=== PATIENT | male | born 1975 | race Caucasian/White ===

== ENCOUNTER 2018-02-17 23:51 | Emergency (ER) | payer OTHER ==
[2018-02-18 00:08] VITALS: TEMP 97.6; BMI 20.3
--- NOTE | 2018-02-18 02:08 | PDOC ---
History of Present Illness - General Chief Complaint: Substance Abuse Stated Complaint: PAIN,SEIZURE Time Seen by Provider: 02/18/18 00:52 History Source: Patient Exam Limitations: No Limitations - History of Present Illness Initial Comments: 02/18/18 02:37 42-year-old male with a history of IVDA resents to the emergency department requesting for opiate detox. Patient states he has no medical complaints at this time. Patient denies headache, dizziness, lightheadedness, neck pains, chest pain, shortness of breath, abdominal pains, flank pains, urinary symptoms. Patient last used heroin intravenously 24 hours ago. Patient states he has a history of IVDA for the past 7 years. Patient denies any medical complaints. Timing/Duration: 24 hours Past History - Past Medical History Allergies/Adverse Reactions: Allergies Allergy/AdvReac Type Severity Reaction Status Date / Time No Known Allergies Allergy Verified 02/18/18 00:06 Home Medications: Ambulatory Orders Alprazolam 2 mg PO DAILY 02/18/18 - Suicide/Smoking/Psychosocial Hx Smoking History: Current every day smoker Have you smoked in the past 12 months: Yes Number of Cigarettes Smoked Daily: 10 Information on smoking cessation initiated: No 'Breaking Loose' booklet given: 02/17/18 Hx Alcohol Use: Yes Drug/Substance Use Hx: Yes Review of Systems - Review of Systems Able to Perform ROS?: Yes Comments:: 02/18/18 02:38 CONSTITUTIONAL: Absent: fever, chills, diaphoresis, generalized weakness, malaise, loss of appetite HEENT: Absent: rhinorrhea, nasal congestion, throat pain, throat swelling, difficulty swallowing, mouth swelling, ear pain, eye pain, visual Changes CARDIOVASCULAR: Absent: chest pain, loss of consciousness, palpitations, irregular heart rate, peripheral edema RESPIRATORY: Absent: cough, shortness of breath, dyspnea with exertion, orthopnea, wheezing, stridor, hemoptysis GASTROINTESTINAL: Absent: abdominal pain, abdominal distension, nausea, vomiting, diarrhea, constipation, melena, hematochezia GENITOURINARY: Absent: dysuria, frequency, urgency, hesitancy, hematuria, flank pain, genital pain MUSCULOSKELETAL: Absent: myalgia, arthralgia, joint swelling SKIN: Absent: rash, itching, pallor HEMATOLOGIC/IMMUNOLOGIC: Absent: easy bleeding, easy bruising, lymphadenopathy, frequent infections ENDOCRINE: Absent: unexplained weight gain, unexplained weight loss, heat intolerance, cold intolerance NEUROLOGIC: Absent: headache, focal weakness or paresthesias, dizziness, unsteady gait, seizure, mental status changes, bladder or bowel incontinence PSYCHIATRIC: Absent: anxiety, depression, suicidal or homicidal ideation, hallucinations. Is the patient limited Omani proficient: No *Physical Exam - Vital Signs Last Vital Signs Temp Pulse Resp BP Pulse Ox 97.6 F 101 H 20 109/83 99 02/18/18 00:06 02/18/18 00:06 02/18/18 00:06 02/18/18 00:06 02/18/18 00:06 - Physical Exam Comments: 02/18/18 02:38 GENERAL: Well developed, well nourished. Awake and alert. No acute distress. HEENT: Normocephalic, atraumatic. PERRLA, EOMI. No conjunctival pallor. Sclera are non- icteric. Moist mucous membranes. Oropharynx is clear. NECK: Supple. Full ROM. No JVD. Carotid pulses 2+ and symmetric, without bruits. No thyromegaly. No lymphadenopathy. CARDIOVASCULAR: Regular rate and rhythm. No murmurs, rubs, or gallops. Distal pulses are 2+ and symmetric. PULMONARY: No evidence of respiratory distress. Lungs clear to auscultation bilaterally. No wheezing, rales or rhonchi. ABDOMINAL: Soft. Non-tender. Non-distended. No rebound or guarding. No organomegaly. Normoactive bowel sounds. MUSCULOSKELETAL Normal range of motion at all joints. No bony deformities or tenderness. No CVA tenderness. EXTREMITIES: No cyanosis. No clubbing. No edema. No calf tenderness. SKIN: Warm and dry. Normal capillary refill. No rashes. No jaundice. NEUROLOGICAL: Alert, awake, appropriate. Cranial nerves 2-12 intact. No deficits to light touch and temperature in face, upper extremities and lower extremities. No motor deficits in the in face, upper extremities and lower extremities. Normoreflexic in the upper and lower extremities. Normal speech. Toes are down- going bilaterally. Gait is normal without ataxia. PSYCHIATRIC: Cooperative. Good eye contact. Appropriate mood and affect. ED Treatment Course - LABORATORY CBC & Chemistry Diagram: 02/18/18 02:16 02/18/18 02:16 *DC/Admit/Observation/Transfer Diagnosis at time of Disposition: Desire for detoxification - Discharge Dispostion Disposition: HOME Condition at time of disposition: Stable Admit: No - Referrals Referrals: Shalonda Siddiqui [Primary Care Provider] - - Patient Instructions Printed Discharge Instructions: DI for Opioid Addiction Additional Instructions: You were informed by the detox unit at [address] [place] [address] that you do not meet the criteria for admission. I had called [address] [place] [address] detox for you while you are in the emergency department and they reiterated that he did not meet the criteria for admission. As per our discussion, you've agreed to be discharged and will follow-up at either [facility], [place] or [facility] detox center. - Post Discharge Activity Progress Note - Progress Note Progress Note: 0105hrs: As per ERICK Jacome at [facility]/[address] [place] [address], patient was at the facility for admission but he did not meet criteria. She was not able to elaborate why he did not meet criteria.
[2018-02-18] MEDS ORDERED: SODIUM CHLORIDE 1,000 ML IV STA (02:09)
[2018-02-18 02:40] LABS: BASO % 0.6 % (0-2.0); EOS % 5.3 % (0-4.5); HEMATOCRIT 36.1 % (35.4-49); HEMOGLOBIN 12.2 GM/dL (11.7-16.9); LYMPH % 37.3 % (8-40); MCH 29.3 pg (25.7-33.7); MCHC 33.8 g/dl (32.0-35.9); MEAN CELL VOLUME 86.8 fl (80-96); MEAN PLT VOLUME 7.7 fl (7.5-11.1); MONO % 9.4 % (3.8-10.2); NEUT % 47.4 % (42.8-82.8); PLATELET COUNT 301 K/MM3 (134-434); RBC 4.15 M/mm3 (4.00-5.60); RDW 13.8 % (11.9-15.9); WHITE BLOOD COUNT 7.7 K/mm3 (4.0-10.0)
[2018-02-18 02:47] LABS: PHENCYCLIDINE,URINE NEGATIVE ng/ml (CUTOFF=25); URINE AMPHETAMINES NEGATIVE ng/ml (CUTOFF=500); URINE BARBITURATES NEGATIVE ng/ml (CUTOFF=200)
[2018-02-18 02:48] LABS: URINE BENZODIAZEPINES POSITIVE ng/ml (CUTOFF=200)
[2018-02-18 02:49] LABS: COCAINE, UR POSITIVE ng/ml (CUTOFF=300); METHADONE, UR POSITIVE ng/ml (CUTOFF=300); OPIATES, URI POSITIVE ng/ml (CUTOFF=300)
[2018-02-18 03:17] LABS: ALBUMIN 3.4 g/dl (3.4-5.0); ANION GAP 10 (8-16); BILIRUBIN,TOTAL 0.6 mg/dL (0.2-1.0); BLOOD UREA NITROGEN 10 mg/dL (7-18); CALCIUM 8.7 mg/dL (8.5-10.1); CHLORIDE 102 mmol/L (98-107); CO2 29 mmol/L (21-32); GLUCOSE,RANDOM 89 mg/dL (74-106); POTASSIUM 3.5 mmol/L (3.5-5.1); SGOT/AST 14 U/L (15-37); SGPT/ALT 18 U/L (12-78); SODIUM 141 mmol/L (136-145); TOT PROT 7.1 g/dl (6.4-8.2)
[2018-02-18 03:18] LABS: ALK PHOS 90 U/L (45-117)
[2018-02-18 05:31] VITALS: BP 106/80; PULSE 90
== END 2018-02-18 05:31 | disposition home or self-care (01) ==
LOC: JER 23:51
DX: F11.20 Opioid dependence, uncomplicated (principal); F17.210 Nicotine dependence, cigarettes, uncomplicated
CPT/HCPCS: 36415; 80053; 80307; 85025; 99282-25; J7030

== ENCOUNTER 2018-02-18 08:08 | Inpatient (IN) | payer OTHER ==
[2018-02-18 08:31] VITALS: BMI 24.4
--- NOTE | 2018-02-18 09:08 | HP ---
CIWA Score - CIWA Score Nausea/Vomitin-Mild Nausea/No Vomiting Muscle Tremors: 4-Moderate,w/Arms Extend Anxiety: 4-Mod. Anxious/Guarded Agitation: 1-Slight > Activity Paroxysmal Sweats: 1-Minimal Palms Moist Orientation: 1-Uncertain about Date Tacttile Disturbances: 1-Very Mild Itch/Numbness Auditory Disturbances: 1-Very Mild Visual Disturbances: 1-Very Mild Sensitivity Headache: 3-Moderate CIWA-Ar Total Score: 18 Admission ROS S - HPI Chief Complaint: I need help, I can't stop the xanax, I get a seizure Allergies/Adverse Reactions: Allergies Allergy/AdvReac Type Severity Reaction Status Date / Time No Known Allergies Allergy Verified 02/18/18 09:33 History of Present Illness: 42 yo gentleman here for detox from benzodiazepine. He is in the [facility] Suboxone program in the [place], , ID#: [id number], dose verified by myself with nurse Guanako Kaur, 16mg, last dose given was yesterday. Patient states he was told by the program he needed to come in for detox and then rehab. He has had drug related seizures, last one three weeks ago. He was in [facility] ED today, labs done there. Patient reports he is still using heroin and/or street methadone but wishes to stay on the suboxone and try to stop the other drugs. States he has lost about 45 lbs. Exam Limitations: No Limitations - Ebola screening Have you traveled outside of the country in the last 21 days: No (N) Have you had contact with anyone from an Ebola affected area: No Have you been sick,other than usual withdrawal symptoms: No Do you have a fever: No - Review of Systems Constitutional: Loss of Appetite, Malaise, Changes in sleep, Weakness, Unintentional Wgt. Loss EENT: reports: No Symptoms Reported Respiratory: reports: No Symptoms reported Cardiac: reports: No Symptoms Reported GI: reports: Nausea, Poor Fluid Intake, Indigestion : reports: Dysuria Musculoskeletal: reports: Muscle Pain Integumentary: reports: Dryness Neuro: reports: Headache, Tremors Endocrine: reports: No Symptoms Reported Hematology: reports: No Symptoms Reported Psychiatric: reports: Judgement Intact, Mood/Affect Appropiate, Anxious Other Systems: Reviewed and Negative Patient History - Patient Medical History Hx Anemia: No Hx Asthma: No Hx Chronic Obstructive Pulmonary Disease (COPD): No Hx Cancer: No Hx Cardiac Disorders: No Hx Congestive Heart Failure: No Hx Hypertension: No Hx Pacemaker: No Hx Seizures: Yes (drug related , last one 01/19/18) Hx Diabetes: No Hx Gastrointestinal Disorders: No Hx Liver Disease: No Hx Genitourinary Disorders: No Hx Sexually Transmitted Disorders: No Hx Renal Disease (ESRD): Yes (renal calculi 2002) Hx Thyroid Disease: No Hx Human Immunodeficiency Virus (HIV): No Hx Hepatitis C: No Hx Depression: Yes (ANXIETY) Hx Suicide Attempt: No Hx Bipolar Disorder: No Hx Schizophrenia: No - Patient Surgical History Past Surgical History: No - PPD History Previous Implant?: No (states had BCG vaccine ) Documented Results: Positive w/o proof Implanted On Prior [facility] Admission?: No PPD to be Administered?: No - Reproductive History Patient is a Female of Child Bearing Age (11 -55 yrs old): No (male) - Smoking Cessation Smoking history: Current every day smoker Have you smoked in the past 12 months: Yes Aproximately how many cigarettes per day: 20 Hx Chewing Tobacco Use: No Initiated information on smoking cessation: Yes 'Breaking Loose' booklet given: 02/18/18 (given on floor) - Substance & Tx. History Hx Alcohol Use: No Hx Substance Use: Yes Substance Use Type: Alcohol, Cocaine, Heroin, Opiates, Tranquilizers Hx Substance Use Treatment: Yes (suboxone program, detox, rehab) - Substances Abused xanax Route: Oral Frequency: Daily Amount used: 8mg Age of first use: 22 Date of Last Use: 02/17/18 street methadone Route: Oral Frequency: 1-3 times last 30 days Amount used: 90mg Age of first use: 27 Date of Last Use: 02/15/18 cocaine Route: Injection Frequency: 1-2 times per week Amount used: $100 Age of first use: 26 Date of Last Use: 02/12/18 heroin Route: Injection Frequency: 1-2 times per week Amount used: 4 bags Age of first use: 27 Date of Last Use: 02/14/18 Family Disease History - Family Disease History Family Disease History: Other: Father (living, healthy, in [place]), Mother (living, healthy, in [place]), Sister (one - healthy - in [place]) Admission Physical Exam [facility] - Vital Signs Vital Signs: Vital Signs - 24 hr 02/18/18 08:30 Temperature 97 F L Pulse Rate 80 Respiratory 19 Rate Blood Pressure 115/72 - Physical General Appearance: Yes: Nourished, Appropriately Dressed, Moderate Distress, Thin, Tremorous, Anxious HEENTM: Yes: EOMI, Hearing grossly Normal, Normocephalic, Normal Voice Respiratory: Yes: Normal Breath Sounds, No Respiratory Distress Neck: Yes: No masses,lesions,Nodules, Supple Breast: Yes: Breast Exam Deferred Cardiology: Yes: Regular Rhythm, Regular Rate Abdominal: Yes: Flat, Soft Genitourinary: Yes: Burning Back: Yes: Normal Inspection Musculoskeletal: Yes: full range of Motion, Gait Steady Extremities: Yes: Normal Inspection, Non-Tender Neurological: Yes: Fully Oriented, Alert, Normal Mood/Affect, Normal Response Integumentary: Yes: Normal Color, Warm, Track Kauffman (both arms, no abscess noted ) Lymphatic: Yes: Within Normal Limits - Diagnostic (1) Sedative, hypnotic or anxiolytic dependence with withdrawal, uncomplicated Current Visit: Yes Status: Chronic (2) Cocaine dependence Current Visit: Yes Status: Chronic Qualifiers: Substance use status: uncomplicated Qualified Code(s): F14.20 - Cocaine dependence, uncomplicated (3) Opiate dependence Current Visit: Yes Status: Acute Qualifiers: Substance use status: uncomplicated Qualified Code(s): F11.20 - Opioid dependence, uncomplicated (4) Nicotine dependence Current Visit: Yes Status: Acute Qualifiers: Nicotine product type: cigarettes Substance use status: uncomplicated Qualified Code(s): F17.210 - Nicotine dependence, cigarettes, uncomplicated (5) Dehydration Current Visit: Yes Status: Acute (6) History of seizure Current Visit: Yes Status: Chronic (7) Weight loss Current Visit: Yes Status: Chronic Cleared for Admission [facility] - Detox or Rehab [facility] Level of Care: Medically Managed Detox Regimen/Protocol: Valium S Breath Alcohol Content Breath Alcohol Content: 0 Urine Drug Screen - Results Drug Screen Negative: No Urine Drug Screen Results: BZO-Benzodiazepines, MTD-Methadone
[2018-02-18] MEDS ORDERED: MAGNESIUM CITRATE 300 ML BOTTLE PO PRN (09:22)
[2018-02-18] MEDS ORDERED: MAGNESIUM HYDROX 2400MG/30ML ORAL SUSPENSION 30 ML CUP PO PRN (09:22)
[2018-02-18] MEDS ORDERED: guaiFENesin/D-METHORPHAN HB 10 ML UNIT-DOSE CUPS PO PRN (09:22)
[2018-02-18] MEDS ORDERED: MENTHOL/PHENOL 1 EACH UD MM PRN (09:22)
[2018-02-18] MEDS ORDERED: LOPERAMIDE HCL 2 MG CAPSULE PO PRN (09:22)
[2018-02-18] MEDS ORDERED: ACETAMINOPHEN 325 MG TABLET (FP) PO PRN (09:22)
[2018-02-18] MEDS ORDERED: P-EPHED 60MG/TRIPROLIDI 2.5MG TABLET PO PRN (09:22)
[2018-02-18] MEDS ORDERED: IBUPROFEN 400 MG TABLET (FP) PO PRN (09:22)
[2018-02-18] MEDS ORDERED: MAG HYDROX/AL HYDROX/SIMETH 30 ML UNIT-DOSE CUP PO PRN (09:22)
[2018-02-18] MEDS ORDERED: diazePAM 5 MG TABLET PO ONE (11:30)
[2018-02-18] MEDS: BUPRENORPHINE/NALOXONE 8 MG/2 MG FILM PACKET SL SCH (12:55)
[2018-02-18] MEDS: PRENATAL VITAMINS W/ FOLIC ACID TABLET (FP) PO SCH (12:58)
[2018-02-18] MEDS: NICOTINE POLACRILEX 4 MG GUM BUC PRN (13:24)
[2018-02-18] MEDS: diazePAM 5 MG TABLET PO SCH ×2 (14:38→22:11)
[2018-02-18] MEDS: diazePAM 5 MG TABLET PO PRN (17:09)
[2018-02-18 17:53] LABS: URINE APPEARANCE SLCLOUDY; URINE BILIRUBIN NEGATIVE (<2.0 mg/dL); URINE BLOOD NEGATIVE (NEGATIVE); URINE COLOR YELLOW; URINE GLUCOSE (UA) NEGATIVE (NEGATIVE); URINE KETONE NEGATIVE (NEGATIVE); URINE LEUK ESTERASE NEGATIVE (NEGATIVE); URINE NITRITE NEGATIVE (NEGATIVE); URINE PROTEIN NEGATIVE (NEGATIVE); URINE UROBILINOGEN 4.0 E.U/dl mg/dL (0.2-1.0)
[2018-02-18] MEDS: MELATONIN 5 MG TABLETS PO PRN (22:10)
[2018-02-18] MEDS: THIAMINE HCL 100 MG TABLET (FP) PO SCH (22:11)
[2018-02-19] MEDS: diazePAM 5 MG TABLET PO SCH ×3 (05:59→22:20)
--- NOTE | 2018-02-19 07:42 | CONSULT ---
[facility] Psychiatric Consult - Data Date of interview: 02/19/18 [facility] Identifying data: Mr Plata is a 42 years old male, unemployed on food stamp, homeless seeking detox treatment for opioid, cocaine and benzodiazepine Substance Abuse History: Reports history of heroin, methadone, cocainr and xanax use. Refer to addiction counselor's note for furhter information Medical History: Significant for history of benzodiazepine withdrawal seizure and renal calculi. Smokes cigarettes 1ppd Psychiatric History: Reports that he has been receiving treatment on & off for the past 10 years for anxiety. Currently he sees the staff psychiatrist at [facility] and he is prescribed Gabapentin 600 mg po Q 8hrs. Denies history of previous psychiatric hospitalization or suicidal attempt. At present, reports feeling anxious and sleeping poorly Physical/Sexual Abuse/Trauma History: Denies history of emotional, physical or sexual abuse as well as DV relationship Additional Comment: Reports history of multiple previous misdemear arrests mostly on charges of possession. Denies being on probation [facility] Mental Status Exam - Mental Status Exam Alert and Oriented to: Time, Person Cognitive Function: Fair Patient Appearance: Well Groomed Mood: Hopeful, Euthymic Affect: Normal Range Patient Behavior: Cooperative Speech Pattern: Clear Voice Loudness: Normal Thought Process: Intact, Goal Oriented Thought Disorder: Not Present Hallucinations: Denies Suicidal Ideation: Denies Homicidal Ideation: Denies Insight/Judgement: Poor Sleep: Poorly Appetite: Poor Muscle strength/Tone: Normal Gait/Station: Normal Psychiatric Findings - Problem List ([place] 1, 2,3) (1) Anxiety disorder Current Visit: Yes Status: Chronic (2) Substance-induced anxiety disorder Current Visit: Yes Status: Acute (3) Substance-induced sleep disorder Current Visit: Yes Status: Acute (4) Opiate dependence Current Visit: Yes Status: Acute Qualifiers: Substance use status: uncomplicated Qualified Code(s): F11.20 - Opioid dependence, uncomplicated (5) Cocaine dependence Current Visit: Yes Status: Acute Qualifiers: Substance use status: uncomplicated Qualified Code(s): F14.20 - Cocaine dependence, uncomplicated (6) Sedative, hypnotic or anxiolytic dependence with withdrawal, uncomplicated Current Visit: Yes Status: Acute (7) Nicotine dependence Current Visit: Yes Status: Acute Qualifiers: Nicotine product type: cigarettes Substance use status: uncomplicated Qualified Code(s): F17.210 - Nicotine dependence, cigarettes, uncomplicated (8) History of seizure Current Visit: Yes Status: Chronic (9) Opioid dependence on agonist therapy Current Visit: Yes Status: Acute - Initial Treatment Plan Initial Treatment Plan: 1) Continue Gabapentin 600 mg po TID. 2) Start Melatonin 5 mg po HS prn for insomnia. 3) Continue inpatient detoxification
[2018-02-19] MEDS: PRENATAL VITAMINS W/ FOLIC ACID TABLET (FP) PO SCH (10:07)
[2018-02-19] MEDS: BUPRENORPHINE/NALOXONE 8 MG/2 MG FILM PACKET SL SCH (10:07)
--- NOTE | 2018-02-19 10:25 | PN ---
[facility] CIWA - CIWA Score Nausea/Vomitin-Mild Nausea/No Vomiting Muscle Tremors: 4-Moderate,w/Arms Extend Anxiety: 4-Mod. Anxious/Guarded Agitation: 4-Moderately Restless Paroxysmal Sweats: 1-Minimal Palms Moist Orientation: 0-Oriented Tacttile Disturbances: 1-Very Mild Itch/Numbness Auditory Disturbances: 0-None Visual Disturbances: 0-None Headache: 1-Very Mild CIWA-Ar Total Score: 16 [facility] Progress Note (SOAP) Subjective: sweat tremor restlessness anxiety itchy skin mild headache Objective: 02/19/18 10:24 Vital Signs Temperature 97.0 F L 02/19/18 07:34 Pulse Rate 55 L 02/19/18 07:34 Respiratory Rate 16 02/19/18 07:34 Blood Pressure 97/57 02/19/18 07:34 O2 Sat by Pulse Oximetry (%) Laboratory Last Values Urine Color Yellow 02/18/18 Unknown Urine Appearance Slcloudy 02/18/18 Unknown Urine pH 6.0 (5.0-8.0) 02/18/18 Unknown Ur Specific [place] 1.014 (1.001-1.035) 02/18/18 Unknown Urine Protein Negative (NEGATIVE) 02/18/18 Unknown Urine Glucose (UA) Negative (NEGATIVE) 02/18/18 Unknown Urine Ketones Negative (NEGATIVE) 02/18/18 Unknown Urine Blood Negative (NEGATIVE) 02/18/18 Unknown Urine Nitrite Negative (NEGATIVE) 02/18/18 Unknown Urine Bilirubin Negative (<2.0 mg/dL) 02/18/18 Unknown Urine Urobilinogen 4.0 e.u/dl mg/dL (0.2-1.0) 02/18/18 Unknown Ur Leukocyte Esterase Negative (NEGATIVE) 02/18/18 Unknown lab noted Assessment: 02/19/18 10:25 withdrawal sx Plan: continue detox
[2018-02-19] MEDS: diazePAM 5 MG TABLET PO PRN ×2 (10:45→18:56)
[2018-02-19] MEDS: GABAPENTIN 300 MG CAPSULE (FP) PO SCH ×2 (14:08→22:20)
--- NOTE | 2018-02-19 16:25 | EKG ---
Test Reason : Blood Pressure : / mmHG Vent. Rate : 075 BPM Atrial Rate : 075 BPM P-R Int : 142 ms QRS Dur : 088 ms QT Int : 386 ms P-R-T Axes : 045 037 032 degrees QTc Int : 431 ms NORMAL SINUS RHYTHM NORMAL ECG NO PREVIOUS ECGS AVAILABLE Confirmed by MD FARTUN, DIOR ([id number]) on 02/19/2018 4:24:28 PM Referred By: Confirmed By:DIOR WILLOUGHBY MD
[2018-02-19] MEDS: THIAMINE HCL 100 MG TABLET (FP) PO SCH (22:20)
[2018-02-19] MEDS: MELATONIN 5 MG TABLETS PO PRN (22:20)
[2018-02-20] MEDS: GABAPENTIN 300 MG CAPSULE (FP) PO SCH ×3 (05:13→22:11)
[2018-02-20] MEDS: diazePAM 5 MG TABLET PO PRN ×3 (05:15→17:06)
[2018-02-20] MEDS: PRENATAL VITAMINS W/ FOLIC ACID TABLET (FP) PO SCH (10:27)
[2018-02-20] MEDS: BUPRENORPHINE/NALOXONE 8 MG/2 MG FILM PACKET SL SCH (10:27)
[2018-02-20] MEDS: diazePAM 5 MG TABLET PO SCH ×2 (10:27→22:11)
--- NOTE | 2018-02-20 11:06 | PN ---
S CIWA - CIWA Score Nausea/Vomitin-No Nausea/No Vomiting Muscle Tremors: 4-Moderate,w/Arms Extend Anxiety: 4-Mod. Anxious/Guarded Agitation: 4-Moderately Restless Paroxysmal Sweats: 1-Minimal Palms Moist Orientation: 0-Oriented Tacttile Disturbances: 0-None Auditory Disturbances: 0-None Visual Disturbances: 0-None Headache: 0-None Present CIWA-Ar Total Score: 13 [facility] Progress Note (SOAP) Subjective: sweat tremor restlessness anxiety sleeplessness Objective: 02/20/18 11:06 Vital Signs Temperature 97.7 F 02/20/18 09:08 Pulse Rate 87 02/20/18 09:08 Respiratory Rate 18 02/20/18 09:08 Blood Pressure 100/70 02/20/18 09:08 O2 Sat by Pulse Oximetry (%) Laboratory Last Values Urine Color Yellow 02/18/18 Unknown Urine Appearance Slcloudy 02/18/18 Unknown Urine pH 6.0 (5.0-8.0) 02/18/18 Unknown Ur Specific [place] 1.014 (1.001-1.035) 02/18/18 Unknown Urine Protein Negative (NEGATIVE) 02/18/18 Unknown Urine Glucose (UA) Negative (NEGATIVE) 02/18/18 Unknown Urine Ketones Negative (NEGATIVE) 02/18/18 Unknown Urine Blood Negative (NEGATIVE) 02/18/18 Unknown Urine Nitrite Negative (NEGATIVE) 02/18/18 Unknown Urine Bilirubin Negative (<2.0 mg/dL) 02/18/18 Unknown Urine Urobilinogen 4.0 e.u/dl mg/dL (0.2-1.0) 02/18/18 Unknown Ur Leukocyte Esterase Negative (NEGATIVE) 02/18/18 Unknown RPR Titer Nonreactive (NONREACTIVE) 02/19/18 06:00 lab noted Assessment: 02/20/18 11:06 withdrawal sx Plan: continue detox
[2018-02-20] MEDS: NICOTINE POLACRILEX 4 MG GUM BUC PRN ×2 (11:26→17:26)
[2018-02-20] MEDS: MELATONIN 5 MG TABLETS PO PRN (22:11)
[2018-02-20] MEDS: THIAMINE HCL 100 MG TABLET (FP) PO SCH (22:11)
[2018-02-21] MEDS: diazePAM 5 MG TABLET PO PRN ×2 (02:34→06:41)
[2018-02-21] MEDS: GABAPENTIN 300 MG CAPSULE (FP) PO SCH ×3 (05:35→22:14)
[2018-02-21] MEDS: hydrOXYzine PAMOATE 50 MG CAPSULE (FP) PO PRN ×2 (05:36→18:05)
[2018-02-21] MEDS: diazePAM 5 MG TABLET PO SCH ×2 (10:13→22:14)
[2018-02-21] MEDS: PRENATAL VITAMINS W/ FOLIC ACID TABLET (FP) PO SCH (10:13)
[2018-02-21] MEDS: BUPRENORPHINE/NALOXONE 8 MG/2 MG FILM PACKET SL SCH (10:13)
[2018-02-21] MEDS: NICOTINE POLACRILEX 4 MG GUM BUC PRN (12:24)
--- NOTE | 2018-02-21 13:24 | PN ---
[facility] Progress Note (SOAP) Subjective: ALERT,IRRITABLE,ANXIOUS,INTERRUPTED SLEEP,TREMOR,PAIN IN THE BODY ,JOINT AND BACK Objective: 02/21/18 13:22 Vital Signs Temperature 97.0 F L 02/21/18 10:00 Pulse Rate 66 02/21/18 10:00 Respiratory Rate 18 02/21/18 10:00 Blood Pressure 111/71 02/21/18 10:00 O2 Sat by Pulse Oximetry (%) Assessment: 02/21/18 13:23 WITHDRAWAL SYMPTOM Plan: CONTINUE DETOX
[2018-02-21] MEDS: THIAMINE HCL 100 MG TABLET (FP) PO SCH (22:14)
[2018-02-21] MEDS: MELATONIN 5 MG TABLETS PO PRN (22:16)
[2018-02-22] MEDS: GABAPENTIN 300 MG CAPSULE (FP) PO SCH (05:24)
--- NOTE | 2018-02-22 09:22 | DS ---
[facility] Detox Discharge Summary Admission Date: 02/18/18 Discharge Date: 02/22/18 - Physical Exam Results Vital Signs: Vital Signs Temperature 97.0 F L 02/22/18 06:32 Pulse Rate 70 02/22/18 06:32 Respiratory Rate 18 02/22/18 06:32 Blood Pressure 119/64 02/22/18 06:32 O2 Sat by Pulse Oximetry (%) - Medication Discharge Medications: Ambulatory Orders Buprenorphine/Naloxone [Suboxone 8Mg/2Mg Sl Film -] 2 each SL DAILY 02/18/18 Gabapentin [Neurontin -] 600 mg PO Q8H 02/18/18
--- NOTE | 2018-02-22 09:26 | DS ---
[facility] Detox Discharge Summary Admission Date: 02/18/18 Discharge Date: 02/22/18 - History Present History: Alcohol Dependence - Physical Exam Results Vital Signs: Vital Signs Temperature 97.0 F L 02/22/18 06:32 Pulse Rate 70 02/22/18 06:32 Respiratory Rate 18 02/22/18 06:32 Blood Pressure 119/64 02/22/18 06:32 O2 Sat by Pulse Oximetry (%) Pertinent Admission Physical Exam Findings: withdrawal sx Laboratory Last Values Urine Color Yellow 02/18/18 Unknown Urine Appearance Slcloudy 02/18/18 Unknown Urine pH 6.0 (5.0-8.0) 02/18/18 Unknown Ur Specific [place] 1.014 (1.001-1.035) 02/18/18 Unknown Urine Protein Negative (NEGATIVE) 02/18/18 Unknown Urine Glucose (UA) Negative (NEGATIVE) 02/18/18 Unknown Urine Ketones Negative (NEGATIVE) 02/18/18 Unknown Urine Blood Negative (NEGATIVE) 02/18/18 Unknown Urine Nitrite Negative (NEGATIVE) 02/18/18 Unknown Urine Bilirubin Negative (<2.0 mg/dL) 02/18/18 Unknown Urine Urobilinogen 4.0 e.u/dl mg/dL (0.2-1.0) 02/18/18 Unknown Ur Leukocyte Esterase Negative (NEGATIVE) 02/18/18 Unknown RPR Titer Nonreactive (NONREACTIVE) 02/19/18 06:00 lab noted - Treatment Hospital Course: Detox Protocol Followed, Detoxed Safely, Responded well, Discharged Condition Good, Rehab Referral Accepted Patient has Accepted a Rehab Referral to: [facility] - Medication Discharge Medications: Ambulatory Orders Buprenorphine/Naloxone [Suboxone 8Mg/2Mg Sl Film -] 2 each SL DAILY 02/18/18 Gabapentin [Neurontin -] 600 mg PO Q8H #90 capsule 02/22/18 - Diagnosis (1) Sedative, hypnotic or anxiolytic dependence with withdrawal, uncomplicated Current Visit: Yes Status: Acute (2) Encounter for monitoring Suboxone maintenance therapy Current Visit: Yes Status: Chronic - AMA Did Patient Leave Against Medical Advice: No
[2018-02-22 09:36] VITALS: BP 126/63; PULSE 76; TEMP 98.1
[2018-02-22] MEDS ORDERED: diazePAM 5 MG TABLET PO SCH (10:00)
[2018-02-22] MEDS: PRENATAL VITAMINS W/ FOLIC ACID TABLET (FP) PO SCH (10:06)
[2018-02-22] MEDS: BUPRENORPHINE/NALOXONE 8 MG/2 MG FILM PACKET SL SCH (10:06)
[2018-02-22] MEDS: NICOTINE POLACRILEX 4 MG GUM BUC PRN (10:29)
== END 2018-02-22 11:06 | disposition home or self-care (01) | DRG 773 ==
LOC: YASAS 08:08 → Y3N 10:17 → UNDOADMIN 10:17 → Y6N 11:14
PROVIDERS: ADMIT Internal Medicine; ATTEND Internal Medicine
PROC: HZ2ZZZZ Detoxification Services for Substance Abuse Treatment (ICD-10-PCS; principal; 2018-02-18)
DX: F11.20 Opioid dependence, uncomplicated (principal); F13.230 Sedative, hypnotic or anxiolytic dependence with withdrawal, uncomplicated; F14.20 Cocaine dependence, uncomplicated; F17.210 Nicotine dependence, cigarettes, uncomplicated; F19.24 Other psychoactive substance dependence with psychoactive substance-induced mood disorder; F19.282 Other psychoactive substance dependence with psychoactive substance-induced sleep disorder; F41.9 Anxiety disorder, unspecified; G40.509 Epileptic seizures related to external causes, not intractable, without status epilepticus; R63.4 Abnormal weight loss; Z68.24 Body mass index [BMI] 24.0-24.9, adult; Z87.442 Personal history of urinary calculi
CPT/HCPCS: 36415; 71046-TC-FY; 81003; 86593; 93005; 93010

== ENCOUNTER 2019-10-10 13:44 | Inpatient (IN) | payer OTHER ==
[2019-10-10 14:20] VITALS: BMI 24.9
--- NOTE | 2019-10-10 15:53 | HP ---
CIWA Score Nausea/Vomitin-Mild Nausea/No Vomiting Muscle Tremors: 3 Anxiety: 3 Agitation: 3 Paroxysmal Sweats: 2 Orientation: 0-Oriented Tacttile Disturbances: 0-None Auditory Disturbances: 0-None Visual Disturbances: 0-None Headache: 0-None Present CIWA-Ar Total Score: 12 - Admission Criteria OASAS Guidelines: Admission for Medically Managed Detox: Requires at least one of the followin. CIWA greater than 12 2. Seizures within the past 24 hours 3. Delirium tremens within the past 24 hours 4. Hallucinations within the past 24 hours 5. Acute intervention needed for co occurring medical disorder 6. Acute intervention needed for co occurring psychiatric disorder 7. Severe withdrawal that cannot be handled at a lower level of care (continued vomiting, continued diarrhea, abnormal vital signs) requiring intravenous medication and/or fluids 8. Admitting History and Physical - Smoking History Smoking history: Current every day smoker Have you smoked in the past 12 months: Yes Aproximately how many cigarettes per day: 20 - Alcohol/Substance Use Hx Alcohol Use: No Admission ROS S - HPI Chief Complaint: benzo detox, on methadone Allergies/Adverse Reactions: Allergies Allergy/AdvReac Type Severity Reaction Status Date / Time Fish Containing Products Allergy Verified 10/10/19 14:09 History of Present Illness: 44 yo with long h/o OUD, here for detoxing off benzo-xanax. Pt has been getting 2 months of xanax meds from PCP- last xanax on 10/06 #60, pt states he restarted using IV heroin when he started xanax. States he lost his job b/c of drug use. Pt signed release to talk to prescribing provider- Josh Gonzalez. Called and left message to call back at [facility]. Xanax- uses 2-4 mg/day Heroin- IV, 1 bundle/day, no OD, has narcan kit at home Methadone program [facility] wants to increase dose occ cocaine use sort of homeless-lost his job and may lose apartment, family in [place] DUR- oxycodone 10mg #60 on 09/20/19 and xanax #60 on 10/06/19 and adderall - Ebola screening Have you traveled outside of the country in the last 21 days: No Have you had contact with anyone from an Ebola affected area: No Do you have a fever: No - Review of Systems Constitutional: No Symptoms Reported EENT: reports: No Symptoms Reported Respiratory: reports: No Symptoms reported Cardiac: reports: No Symptoms Reported GI: reports: No Symptoms Reported : reports: No Symptoms Reported Musculoskeletal: reports: No Symptoms Reported Integumentary: reports: No Symptoms Reported Neuro: reports: No Symptoms reported Endocrine: reports: No Symptoms Reported Hematology: reports: No Symptoms Reported Psychiatric: reports: No Sypmtoms Reported Other Systems: Reviewed and Negative (denies depression, anxiety) Patient History - Patient Medical History Hx Anemia: No Hx Asthma: No Hx Chronic Obstructive Pulmonary Disease (COPD): No Hx Cancer: No Hx Cardiac Disorders: No Hx Congestive Heart Failure: No Hx Hypertension: No Hx Pacemaker: No Hx Seizures: Yes (drug related , last one 01/19/18) Hx Diabetes: No Hx Gastrointestinal Disorders: No Hx Liver Disease: No Hx Genitourinary Disorders: No Hx Sexually Transmitted Disorders: No Hx Renal Disease (ESRD): Yes (renal calculi 2002) Hx Thyroid Disease: No Hx Human Immunodeficiency Virus (HIV): No Hx Hepatitis C: No Hx Depression: Yes (ANXIETY) Hx Suicide Attempt: No Hx Bipolar Disorder: No Hx Schizophrenia: No - Patient Surgical History Past Surgical History: No - Smoking Cessation Smoking history: Current every day smoker Have you smoked in the past 12 months: Yes Aproximately how many cigarettes per day: 10 Hx Chewing Tobacco Use: No Initiated information on smoking cessation: Yes 'Breaking Loose' booklet given: 10/10/19 - Substances abused Cocaine Substance route: Injection Frequency: Daily Amount used: 1/2 gram Age of first use: 27 Date of last use: 10/09/19 Heroin Substance route: Injection Frequency: Daily Amount used: 10bags Age of first use: 27 Date of last use: 10/09/19 Alprazolam (Xanax) Other (specify): 2mg Substance route: Oral Frequency: Daily Amount used: 5 tabs Age of first use: 27 Date of last use: 10/09/19 Admission Physical Exam [facility] - Vital Signs Vital Signs: Vital Signs - 24 hr 10/10/19 14:13 Temperature 97.0 F L Pulse Rate 71 Respiratory 18 Rate Blood Pressure 117/67 - Physical General Appearance: Yes: Mild Distress, Cachetic, Thin HEENTM: Yes: Within Normal Limits, Normal Voice, ISADORA Respiratory: Yes: Within Normal Limits, Chest Non-Tender, Lungs Clear Neck: Yes: Within Normal Limits Cardiology: Yes: Within Normal Limits, Regular Rate Abdominal: Yes: Within Normal Limits, Normal Bowel Sounds Genitourinary: Yes: Within Normal Limits Back: Yes: Within Normal Limits Musculoskeletal: Yes: Within Normal Limits, full range of Motion, Gait Steady Extremities: Yes: Within Normal Limits Neurological: Yes: Within Normal Limits, stencil sprayer II-XII NML intact, Fully Oriented Integumentary: Yes: Within Normal Limits, Normal Color, Track Kauffman Lymphatic: Yes: Within Normal Limits - Diagnostic (1) Cocaine dependence Current Visit: No Status: Acute Qualifiers: Substance use status: uncomplicated Qualified Code(s): F14.20 - Cocaine dependence, uncomplicated (2) Nicotine dependence Current Visit: No Status: Acute Qualifiers: Nicotine product type: cigarettes Substance use status: uncomplicated Qualified Code(s): F17.210 - Nicotine dependence, cigarettes, uncomplicated (3) Opiate dependence Current Visit: No Status: Acute Qualifiers: Substance use status: uncomplicated Qualified Code(s): F11.20 - Opioid dependence, uncomplicated (4) Opioid dependence on agonist therapy Current Visit: No Status: Acute Breathalyzer - Breathalyzer Breathalyzer: 0 Urine Drug Screen - Test Device Lot number: [id number] Expiration date: 06/20/21 - Control Is test valid?: Yes - Results Drug screen NEGATIVE: No Urine drug screen results: SARBJIT-Cocaine, FEN-Fentanyl, MOP-Opiates, MTD-Methadone , BZO-Benzodiazepines Inpatient Rehab Admission - Rehab Decision to Admit Inpatient rehab admission?: No
[2019-10-10] MEDS ORDERED: ACETAMINOPHEN 325 MG TABLET (FP) PO PRN ×2 (15:59)
[2019-10-10] MEDS ORDERED: BISMUTH SUBSALICYLATE 524 MG/30 ML UD PO PRN (15:59)
[2019-10-10] MEDS ORDERED: MAG HYDROX/AL HYDROX/SIMETH 30 ML UNIT-DOSE CUP PO PRN (15:59)
[2019-10-10] MEDS ORDERED: MELATONIN 5 MG TABLETS PO PRN (15:59)
[2019-10-10] MEDS ORDERED: hydrOXYzine PAMOATE 25 MG CAPSULE (FP) PO PRN ×2 (15:59→16:01)
[2019-10-10] MEDS ORDERED: MAGNESIUM HYDROX 2400MG/30ML ORAL SUSPENSION 30 ML CUP PO PRN (15:59)
[2019-10-10] MEDS ORDERED: IBUPROFEN 400 MG TABLET (FP) PO PRN (15:59)
[2019-10-10] MEDS ORDERED: MENTHOL/PHENOL 1 EACH UD MM PRN (15:59)
[2019-10-10] MEDS ORDERED: MAGNESIUM CITRATE 300 ML BOTTLE PO PRN (15:59)
[2019-10-10] MEDS ORDERED: METHOCARBAMOL 500 MG TABLET PO PRN (15:59)
[2019-10-10] MEDS ORDERED: cloNIDine HCL 0.1 MG TABLET PO PRN (16:01)
[2019-10-10] MEDS: diazePAM 5 MG TABLET PO PRN (17:39)
[2019-10-10] MEDS: GABAPENTIN 300 MG CAPSULE (FP) PO SCH (17:39)
[2019-10-10] MEDS: diazePAM 5 MG TABLET PO SCH (22:05)
[2019-10-10] MEDS: THIAMINE HCL 100 MG TABLET (FP) PO SCH (22:05)
[2019-10-11] MEDS: GABAPENTIN 300 MG CAPSULE (FP) PO SCH ×4 (02:23→22:11)
[2019-10-11] MEDS ORDERED: METHADONE HCL 10 MG TABLET ONE (04:28)
[2019-10-11] MEDS ORDERED: METHADONE HCL 40 MG DISPERSABLE TABLET ONE (04:28)
[2019-10-11] MEDS: METHADONE 40 MG, METHADONE 30 MG PO SCH (05:30)
[2019-10-11] MEDS: diazePAM 5 MG TABLET PO SCH ×3 (05:31→22:11)
[2019-10-11] MEDS ORDERED: METHADONE HCL 10 MG TABLET PO SCH (06:00)
--- NOTE | 2019-10-11 08:23 | CONSULT ---
[facility] Psychiatric Consult - Data Date of interview: 10/11/19 Admission source: [facility] Identifying data: Patient is a 44 year old male, , father of one, unemployed, homeless, and denies currently receiving financial assistance. Reports recently losing his job. This is one of multiple admissions for patient. Patient admitted to for opiate and benzodiazepine dependence. Substance Abuse History: Smoking Cessation. Smoking history: Current every day smoker. Have you smoked in the past 12 months: Yes. Aproximately how many cigarettes per day: 10. Hx Chewing Tobacco Use: No. Initiated information on smoking cessation: Yes. 'Breaking Loose' booklet given: 10/10/19. - Substances abused. Cocaine. Substance route: Injection. Frequency: Daily. Amount used: 1/2 gram. Age of first use: 27. Date of last use: 10/09/19. * * Heroin. Substance route: Injection. Frequency: Daily. Amount used: 10bags. Age of first use: 27. Date of last use: 10/09/19. Alprazolam (Xanax). Other (specify): 2mg. Substance route: Oral. Frequency: Daily. Amount used: 5 tabs. Age of first use: 27. Date of last use: 10/09/19 Medical History: renal calculi 2002, seizures (drug related most recent 01/19/18) Psychiatric History: Patient denies history of psychiatric hospitalizations, and suicide attempt. Mr. Plata most recently saw an outpatient psychiatrist 4-5 months ago at the [facility] clinic. He reports a diagnosis of anxiety and was prescribed gabapentin 600mg TID. Reports being off gabapentin for 2 months before it was started yesterday by Dr. Haider. Patient reports motivation to complete detox and continue treatment in rehab. Physical/Sexual Abuse/Trauma History: denies. Mental Status Exam - Mental Status Exam Alert and Oriented to: Time, Place, Person Cognitive Function: Good Patient Appearance: Well Groomed Mood: Withdrawn Affect: Mood Congruent Patient Behavior: Cooperative Speech Pattern: Clear Voice Loudness: Moderately Soft/Quiet Thought Process: Goal Oriented Thought Disorder: Not Present Hallucinations: Denies Suicidal Ideation: Denies Homicidal Ideation: Denies Insight/Judgement: Poor Sleep: Fair Appetite: Fair Muscle strength/Tone: Normal Gait/Station: Normal Psychiatric Findings - Problem List ([place] 1, 2,3) (1) Cocaine dependence Current Visit: Yes Status: Acute Qualifiers: Substance use status: uncomplicated Qualified Code(s): F14.20 - Cocaine dependence, uncomplicated (2) Opiate dependence Current Visit: Yes Status: Acute Qualifiers: Substance use status: uncomplicated Qualified Code(s): F11.20 - Opioid dependence, uncomplicated (3) Opioid dependence on agonist therapy Current Visit: Yes Status: Acute (4) Substance-induced anxiety disorder Current Visit: Yes Status: Acute - Initial Treatment Plan Initial Treatment Plan: Psychoeducation provided. Detoxification in progress. Gabapentin 600mg TID ordered by Dr. Haider. Benefits and side effects discussed. Verbal consent given.
[2019-10-11 09:34] LABS: HEMATOCRIT 43.4 % (35.4-49); HEMOGLOBIN 14.4 GM/dL (11.7-16.9); MCH 29.3 pg (25.7-33.7); MCHC 33.2 g/dl (32.0-35.9); MEAN CELL VOLUME 88.3 fl (80-96); MEAN PLT VOLUME 8.6 fl (7.5-11.1); PLATELET COUNT 268 K/MM3 (134-434); RBC 4.92 M/mm3 (4.00-5.60); RDW 14.1 % (11.9-15.9); WHITE BLOOD COUNT 5.8 K/mm3 (4.0-10.0)
[2019-10-11 09:44] LABS: ALBUMIN 3.2 g/dl (3.4-5.0); BILIRUBIN,TOTAL 0.7 mg/dL (0.2-1); BLOOD UREA NITROGEN 10.8 mg/dL (7-18); CALCIUM 8.7 mg/dL (8.5-10.1); POTASSIUM 4.3 mmol/L (3.5-5.1); TOT PROT 6.8 g/dl (6.4-8.2)
[2019-10-11] MEDS: PRENATAL VITAMINS W/ FOLIC ACID TABLET (FP) PO SCH (10:39)
[2019-10-11] MEDS: diazePAM 5 MG TABLET PO PRN (10:40)
[2019-10-11] MEDS: NICOTINE POLACRILEX 2 MG GUM BUC PRN ×2 (10:41→22:34)
--- NOTE | 2019-10-11 14:28 | PN ---
S CIWA - CIWA Score Nausea/Vomitin-Mild Nausea/No Vomiting Muscle Tremors: 3 Anxiety: 2 Agitation: 2 Paroxysmal Sweats: 1-Minimal Palms Moist Orientation: 0-Oriented Tacttile Disturbances: 1-Very Mild Itch/Numbness Auditory Disturbances: 1-Very Mild Visual Disturbances: 0-None Headache: 2-Mild CIWA-Ar Total Score: 13 S Progress Note (SOAP) Subjective: 44 years old male admitted on 10/10/19 for alcohol withdrawal sx management treated with valium detox regimen ate breakfast no trouble chewing swallowing tolerated food and fluid well resting on bed feeling tired limited conversation with staff Objective: 10/11/19 14:49 alcohol withdrawal sx 10/11/19 14:50 Vital Signs Temperature 98.3 F 10/11/19 13:12 Pulse Rate 72 10/11/19 13:12 Respiratory Rate 18 10/11/19 13:12 Blood Pressure 110/69 10/11/19 13:12 O2 Sat by Pulse Oximetry (%) Laboratory Last Values WBC 5.8 K/mm3 (4.0-10.0) 10/11/19 08:00 RBC 4.92 M/mm3 (4.00-5.60) 10/11/19 08:00 Hgb 14.4 GM/dL (11.7-16.9) 10/11/19 08:00 Hct 43.4 % (35.4-49) D 10/11/19 08:00 MCV 88.3 fl (80-96) 10/11/19 08:00 MCH 29.3 pg (25.7-33.7) 10/11/19 08:00 MCHC 33.2 g/dl (32.0-35.9) 10/11/19 08:00 RDW 14.1 % (11.9-15.9) 10/11/19 08:00 Plt Count 268 K/MM3 (134-434) 10/11/19 08:00 MPV 8.6 fl (7.5-11.1) D 10/11/19 08:00 Sodium 138 mmol/L (136-145) 10/11/19 08:00 Potassium 4.3 mmol/L (3.5-5.1) 10/11/19 08:00 Chloride 103 mmol/L (98-107) 10/11/19 08:00 Carbon Dioxide 32 mmol/L (21-32) 10/11/19 08:00 Anion Gap 4 MMOL/L (8-16) L 10/11/19 08:00 BUN 10.8 mg/dL (7-18) 10/11/19 08:00 Creatinine 1.0 mg/dL (0.55-1.3) 10/11/19 08:00 Est GFR (CKD-EPI)AfAm 107.12 10/11/19 08:00 Est GFR (CKD-EPI)NonAf 92.42 10/11/19 08:00 Random Glucose 80 mg/dL (74-106) 10/11/19 08:00 Calcium 8.7 mg/dL (8.5-10.1) 10/11/19 08:00 Total Bilirubin 0.7 mg/dL (0.2-1) 10/11/19 08:00 AST 15 U/L (15-37) 10/11/19 08:00 ALT 23 U/L (13-61) 10/11/19 08:00 Alkaline Phosphatase 89 U/L (45-117) 10/11/19 08:00 Total Protein 6.8 g/dl (6.4-8.2) 10/11/19 08:00 Albumin 3.2 g/dl (3.4-5.0) L 10/11/19 08:00 RPR Titer Nonreactive (NONREACTIVE) 10/11/19 08:00 lab noted Assessment: 10/11/19 14:50 alcohol withdrawal sx Plan: continue valium detox regimen
[2019-10-11] MEDS: THIAMINE HCL 100 MG TABLET (FP) PO SCH (22:11)
[2019-10-12] MEDS ORDERED: METHADONE HCL 10 MG TABLET ONE (04:45)
[2019-10-12] MEDS ORDERED: METHADONE HCL 40 MG DISPERSABLE TABLET ONE (04:45)
[2019-10-12] MEDS: diazePAM 5 MG TABLET PO SCH ×2 (05:39→16:59)
[2019-10-12] MEDS: GABAPENTIN 300 MG CAPSULE (FP) PO SCH ×3 (05:39→21:56)
[2019-10-12] MEDS: METHADONE 40 MG, METHADONE 30 MG PO SCH (05:39)
[2019-10-12] MEDS: PRENATAL VITAMINS W/ FOLIC ACID TABLET (FP) PO SCH (10:17)
--- NOTE | 2019-10-12 13:55 | PN ---
[facility] CIWA - CIWA Score Nausea/Vomitin-Mild Nausea/No Vomiting Muscle Tremors: 2 Anxiety: 2 Agitation: 2 Paroxysmal Sweats: No Perspiration Orientation: 0-Oriented Tacttile Disturbances: 1-Very Mild Itch/Numbness Auditory Disturbances: 0-None Visual Disturbances: 0-None Headache: 1-Very Mild CIWA-Ar Total Score: 9 BHS Progress Note (SOAP) Subjective: alert,irritable,anxious,interrupted sleep Objective: 10/12/19 13:54 Vital Signs Temperature 98.1 F 10/12/19 13:35 Pulse Rate 78 10/12/19 13:35 Respiratory Rate 16 10/12/19 13:35 Blood Pressure 112/72 10/12/19 13:35 O2 Sat by Pulse Oximetry (%) Assessment: 10/12/19 13:54 withdrawal symptom Plan: continue detox valium regimen,discharge in am
[2019-10-12] MEDS: THIAMINE HCL 100 MG TABLET (FP) PO SCH (21:55)
[2019-10-12] MEDS: diazePAM 5 MG TABLET PO PRN (21:56)
[2019-10-13] MEDS ORDERED: METHADONE HCL 10 MG TABLET ONE (03:49)
[2019-10-13] MEDS ORDERED: METHADONE HCL 40 MG DISPERSABLE TABLET ONE (03:50)
[2019-10-13] MEDS ORDERED: diazePAM 5 MG TABLET PO ONE (06:00)
[2019-10-13] MEDS: GABAPENTIN 300 MG CAPSULE (FP) PO SCH (06:12)
[2019-10-13] MEDS: METHADONE 40 MG, METHADONE 30 MG PO SCH (06:12)
[2019-10-13 09:16] VITALS: BP 121/76; PULSE 80; TEMP 97.2
[2019-10-13] MEDS: PRENATAL VITAMINS W/ FOLIC ACID TABLET (FP) PO SCH (10:15)
[2019-10-13] MEDS: diazePAM 5 MG TABLET PO PRN (10:16)
[2019-10-13] MEDS: NICOTINE POLACRILEX 2 MG GUM BUC PRN (10:20)
--- NOTE | 2019-10-13 14:21 | DS ---
[facility] Detox Discharge Summary Admission Date: 10/10/19 Discharge Date: 10/13/19 - History Present History: Cocaine Dependence, Sedative Dependence Additional Comments: Pt is medically cleared and is discharged today and accepted to [facility] for continued management. Pt is alert and oriented x3 and in no respiratory distress. Pertinent Past History: H/O cocaine, benzos, and heroin use disorder. - Physical Exam Results Vital Signs: Vital Signs Temperature 97.2 F L 10/13/19 09:16 Pulse Rate 80 10/13/19 09:16 Respiratory Rate 18 10/13/19 09:16 Blood Pressure 121/76 10/13/19 09:16 O2 Sat by Pulse Oximetry (%) Vital Signs 10/13/19 10/13/19 10/13/19 06:30 06:35 09:16 Temperature 97.5 F L 97.2 F L Pulse Rate 62 80 Respiratory 18 18 18 Rate Blood Pressure 122/74 121/76 Laboratory Last Values WBC 5.8 K/mm3 (4.0-10.0) 10/11/19 08:00 RBC 4.92 M/mm3 (4.00-5.60) 10/11/19 08:00 Hgb 14.4 GM/dL (11.7-16.9) 10/11/19 08:00 Hct 43.4 % (35.4-49) D 10/11/19 08:00 MCV 88.3 fl (80-96) 10/11/19 08:00 MCH 29.3 pg (25.7-33.7) 10/11/19 08:00 MCHC 33.2 g/dl (32.0-35.9) 10/11/19 08:00 RDW 14.1 % (11.9-15.9) 10/11/19 08:00 Plt Count 268 K/MM3 (134-434) 10/11/19 08:00 MPV 8.6 fl (7.5-11.1) D 10/11/19 08:00 Sodium 138 mmol/L (136-145) 10/11/19 08:00 Potassium 4.3 mmol/L (3.5-5.1) 10/11/19 08:00 Chloride 103 mmol/L (98-107) 10/11/19 08:00 Carbon Dioxide 32 mmol/L (21-32) 10/11/19 08:00 Anion Gap 4 MMOL/L (8-16) L 10/11/19 08:00 BUN 10.8 mg/dL (7-18) 10/11/19 08:00 Creatinine 1.0 mg/dL (0.55-1.3) 10/11/19 08:00 Est GFR (CKD-EPI)AfAm 107.12 10/11/19 08:00 Est GFR (CKD-EPI)NonAf 92.42 10/11/19 08:00 Random Glucose 80 mg/dL (74-106) 10/11/19 08:00 Calcium 8.7 mg/dL (8.5-10.1) 10/11/19 08:00 Total Bilirubin 0.7 mg/dL (0.2-1) 10/11/19 08:00 AST 15 U/L (15-37) 10/11/19 08:00 ALT 23 U/L (13-61) 10/11/19 08:00 Alkaline Phosphatase 89 U/L (45-117) 10/11/19 08:00 Total Protein 6.8 g/dl (6.4-8.2) 10/11/19 08:00 Albumin 3.2 g/dl (3.4-5.0) L 10/11/19 08:00 RPR Titer Nonreactive (NONREACTIVE) 10/11/19 08:00 Labs noted. Pertinent Admission Physical Exam Findings: withdrawal symptoms. - Treatment Hospital Course: Detox Protocol Followed, Detoxed Safely, Responded well, Discharged Condition Good, Rehab Referral Accepted - Medication Discharge Medications: Ambulatory Orders Gabapentin [Neurontin -] 600 mg PO Q8H #90 capsule 02/22/18 Alprazolam [Xanax] 2 mg PO DAILY 10/10/19 - Diagnosis (1) Cocaine dependence Status: Acute Qualifiers: Substance use status: uncomplicated Qualified Code(s): F14.20 - Cocaine dependence, uncomplicated (2) Nicotine dependence Status: Acute Qualifiers: Nicotine product type: cigarettes Substance use status: uncomplicated Qualified Code(s): F17.210 - Nicotine dependence, cigarettes, uncomplicated (3) Opioid dependence on agonist therapy Status: Acute (4) History of seizure Status: Chronic - AMA Did Patient Leave Against Medical Advice: No S CIWA - CIWA Score Nausea/Vomitin-No Nausea/No Vomiting Muscle Tremors: None Anxiety: 1-Mildly Anxious Agitation: 0-Normal Activity Paroxysmal Sweats: 2 Orientation: 0-Oriented Tacttile Disturbances: 0-None Auditory Disturbances: 0-None Visual Disturbances: 0-None Headache: 0-None Present CIWA-Ar Total Score: 3
== END 2019-10-13 13:13 | disposition other institution (70) | DRG 773 ==
LOC: YASAS 13:44 → Y3N 16:42
PROVIDERS: ADMIT Allergy & Immunology; ATTEND Allergy & Immunology
PROC: HZ2ZZZZ Detoxification Services for Substance Abuse Treatment (ICD-10-PCS; principal; 2019-10-10)
DX: F10.230 Alcohol dependence with withdrawal, uncomplicated (principal); F11.20 Opioid dependence, uncomplicated; F13.20 Sedative, hypnotic or anxiolytic dependence, uncomplicated; F14.20 Cocaine dependence, uncomplicated; F17.210 Nicotine dependence, cigarettes, uncomplicated; F19.280 Other psychoactive substance dependence with psychoactive substance-induced anxiety disorder; F41.8 Other specified anxiety disorders; F31.9 Bipolar disorder, unspecified; G40.509 Epileptic seizures related to external causes, not intractable, without status epilepticus; Z87.442 Personal history of urinary calculi; Z91.013 Allergy to seafood; Z59.0 Homelessness
CPT/HCPCS: 36415; 80053; 85027; 86593

== ENCOUNTER 2019-10-13 12:39 | Inpatient (IN) | payer OTHER ==
[2019-10-13] MEDS ORDERED: IBUPROFEN 400 MG TABLET (FP) PO PRN (14:33)
[2019-10-13] MEDS ORDERED: LOPERAMIDE HCL 2 MG CAPSULE PO PRN (14:33)
[2019-10-13] MEDS ORDERED: MENTHOL/PHENOL 1 EACH UD MM PRN (14:33)
[2019-10-13] MEDS ORDERED: hydrOXYzine PAMOATE 25 MG CAPSULE (FP) PO PRN (14:33)
[2019-10-13] MEDS ORDERED: MAGNESIUM HYDROX 2400MG/30ML ORAL SUSPENSION 30 ML CUP PO PRN (14:33)
[2019-10-13] MEDS ORDERED: ACETAMINOPHEN 325 MG TABLET (FP) PO PRN (14:33)
[2019-10-13] MEDS ORDERED: guaiFENesin 200 MG/10 ML 10 ML UNIT-DOSE CUPS PO PRN (14:33)
[2019-10-13] MEDS ORDERED: MAG HYDROX/AL HYDROX/SIMETH 30 ML UNIT-DOSE CUP PO PRN (14:33)
[2019-10-13] MEDS ORDERED: P-EPHED 60MG/TRIPROLIDI 2.5MG TABLET PO PRN (14:33)
--- NOTE | 2019-10-13 14:33 | HP ---
[facility] Rehab Assess/Revision - Admission History Admitted to Rehab from: [facility] Date of Admission to Rehab: 10/13/2019 - Vital signs Vital Signs: Stable - Findings Detox History & Physical reviewed: Yes Concur with findings: Yes Inpatient Rehab Admission - Rehab Decision to Admit Inpatient rehab admission?: Yes - Initial Determination Are CD services needed?: Yes Free of communicable disease: Yes Not in need of hospitalization: Yes - Rehab Admission Criteria Previous failed treatment: Yes Poor recovery environment: Yes Comorbidities: Yes Lacks judgement: No Patient is meeting Inpatient Rehab admission criteria:: Yes
[2019-10-13] MEDS ORDERED: METHOCARBAMOL 500 MG TABLET PO PRN (14:37)
[2019-10-13] MEDS: MELATONIN 5 MG TABLETS PO PRN (21:00)
[2019-10-13] MEDS: THIAMINE HCL 100 MG TABLET (FP) PO SCH (21:00)
[2019-10-13] MEDS: GABAPENTIN 300 MG CAPSULE (FP) PO SCH (22:47)
[2019-10-14] MEDS ORDERED: METHADONE HCL 40 MG DISPERSABLE TABLET ONE (05:26)
[2019-10-14] MEDS ORDERED: METHADONE HCL 10 MG TABLET ONE (05:26)
[2019-10-14] MEDS: METHADONE 40 MG, METHADONE 30 MG PO SCH (05:54)
[2019-10-14] MEDS: GABAPENTIN 300 MG CAPSULE (FP) PO SCH ×3 (05:54→22:50)
[2019-10-14] MEDS ORDERED: METHADONE HCL 40 MG DISPERSABLE TABLET PO SCH (06:00)
[2019-10-14] MEDS: NICOTINE POLACRILEX 2 MG GUM BUC PRN ×4 (08:10→17:18)
[2019-10-14] MEDS: PRENATAL VITAMINS W/ FOLIC ACID TABLET (FP) PO SCH (09:44)
[2019-10-14] MEDS: THIAMINE HCL 100 MG TABLET (FP) PO SCH (21:16)
[2019-10-15] MEDS ORDERED: METHADONE HCL 10 MG TABLET ONE (03:38)
[2019-10-15] MEDS ORDERED: METHADONE HCL 40 MG DISPERSABLE TABLET ONE (03:39)
[2019-10-15] MEDS: GABAPENTIN 300 MG CAPSULE (FP) PO SCH ×3 (06:09→21:54)
[2019-10-15] MEDS: METHADONE 40 MG, METHADONE 30 MG PO SCH (06:09)
[2019-10-15] MEDS: PRENATAL VITAMINS W/ FOLIC ACID TABLET (FP) PO SCH (09:54)
[2019-10-15] MEDS: NICOTINE POLACRILEX 2 MG GUM BUC PRN ×3 (09:55→14:43)
[2019-10-15] MEDS: THIAMINE HCL 100 MG TABLET (FP) PO SCH (21:14)
[2019-10-15] MEDS: MELATONIN 5 MG TABLETS PO PRN (21:14)
[2019-10-16] MEDS: GABAPENTIN 300 MG CAPSULE (FP) PO SCH ×3 (06:10→21:48)
[2019-10-16] MEDS ORDERED: METHADONE HCL 40 MG DISPERSABLE TABLET ONE (08:36)
[2019-10-16] MEDS ORDERED: METHADONE HCL 10 MG TABLET ONE (08:36)
[2019-10-16] MEDS: PRENATAL VITAMINS W/ FOLIC ACID TABLET (FP) PO SCH (09:49)
[2019-10-16] MEDS: NICOTINE POLACRILEX 2 MG GUM BUC PRN ×4 (09:50→21:48)
[2019-10-16] MEDS ORDERED: METHADONE 40 MG, METHADONE 30 MG PO SCH (10:00)
[2019-10-16] MEDS: THIAMINE HCL 100 MG TABLET (FP) PO SCH (21:48)
[2019-10-16] MEDS: MELATONIN 5 MG TABLETS PO PRN (21:48)
[2019-10-17] MEDS ORDERED: METHADONE HCL 40 MG DISPERSABLE TABLET ONE (05:48)
[2019-10-17] MEDS ORDERED: METHADONE HCL 10 MG TABLET ONE (05:48)
[2019-10-17] MEDS: METHADONE 40 MG, METHADONE 30 MG PO SCH (06:29)
[2019-10-17] MEDS: GABAPENTIN 300 MG CAPSULE (FP) PO SCH ×3 (06:30→21:52)
[2019-10-17] MEDS: NICOTINE POLACRILEX 2 MG GUM BUC PRN ×5 (08:55→21:00)
[2019-10-17] MEDS: PRENATAL VITAMINS W/ FOLIC ACID TABLET (FP) PO SCH (10:15)
[2019-10-17] MEDS: MELATONIN 5 MG TABLETS PO PRN (20:59)
[2019-10-17] MEDS: THIAMINE HCL 100 MG TABLET (FP) PO SCH (20:59)
[2019-10-18] MEDS ORDERED: METHADONE HCL 10 MG TABLET ONE (05:25)
[2019-10-18] MEDS ORDERED: METHADONE HCL 40 MG DISPERSABLE TABLET ONE (05:25)
[2019-10-18] MEDS: GABAPENTIN 300 MG CAPSULE (FP) PO SCH ×3 (05:55→21:45)
[2019-10-18] MEDS: METHADONE 40 MG, METHADONE 30 MG PO SCH (05:55)
[2019-10-18] MEDS: NICOTINE POLACRILEX 2 MG GUM BUC PRN ×6 (08:42→22:07)
[2019-10-18] MEDS: PRENATAL VITAMINS W/ FOLIC ACID TABLET (FP) PO SCH (10:01)
[2019-10-18] MEDS: THIAMINE HCL 100 MG TABLET (FP) PO SCH (21:26)
[2019-10-18] MEDS: MELATONIN 5 MG TABLETS PO PRN (21:26)
[2019-10-19] MEDS ORDERED: METHADONE HCL 10 MG TABLET ONE (05:24)
[2019-10-19] MEDS ORDERED: METHADONE HCL 40 MG DISPERSABLE TABLET ONE (05:24)
[2019-10-19] MEDS: METHADONE 40 MG, METHADONE 30 MG PO SCH (05:57)
[2019-10-19] MEDS: GABAPENTIN 300 MG CAPSULE (FP) PO SCH ×3 (05:58→22:47)
[2019-10-19] MEDS: NICOTINE POLACRILEX 2 MG GUM BUC PRN ×4 (06:00→17:34)
[2019-10-19] MEDS: PRENATAL VITAMINS W/ FOLIC ACID TABLET (FP) PO SCH (09:47)
[2019-10-19] MEDS: THIAMINE HCL 100 MG TABLET (FP) PO SCH (22:46)
[2019-10-20] MEDS ORDERED: METHADONE HCL 10 MG TABLET ONE (05:52)
[2019-10-20] MEDS ORDERED: METHADONE HCL 40 MG DISPERSABLE TABLET ONE (05:53)
[2019-10-20] MEDS: GABAPENTIN 300 MG CAPSULE (FP) PO SCH ×3 (06:01→21:34)
[2019-10-20] MEDS: METHADONE 40 MG, METHADONE 30 MG PO SCH (06:01)
[2019-10-20] MEDS: NICOTINE POLACRILEX 2 MG GUM BUC PRN ×3 (09:30→19:24)
[2019-10-20] MEDS: PRENATAL VITAMINS W/ FOLIC ACID TABLET (FP) PO SCH (09:30)
[2019-10-20] MEDS: MELATONIN 5 MG TABLETS PO PRN (21:07)
[2019-10-20] MEDS: THIAMINE HCL 100 MG TABLET (FP) PO SCH (21:07)
[2019-10-21] MEDS ORDERED: METHADONE HCL 40 MG DISPERSABLE TABLET ONE (05:55)
[2019-10-21] MEDS ORDERED: METHADONE HCL 10 MG TABLET ONE (05:55)
[2019-10-21] MEDS: METHADONE 40 MG, METHADONE 30 MG PO SCH (06:11)
[2019-10-21] MEDS: GABAPENTIN 300 MG CAPSULE (FP) PO SCH ×3 (06:11→21:39)
[2019-10-21] MEDS: NICOTINE POLACRILEX 2 MG GUM BUC PRN ×4 (06:13→21:40)
[2019-10-21] MEDS: PRENATAL VITAMINS W/ FOLIC ACID TABLET (FP) PO SCH (09:38)
[2019-10-21] MEDS: THIAMINE HCL 100 MG TABLET (FP) PO SCH (21:39)
[2019-10-21] MEDS: MELATONIN 5 MG TABLETS PO PRN (21:40)
[2019-10-22] MEDS ORDERED: METHADONE HCL 40 MG DISPERSABLE TABLET ONE (05:55)
[2019-10-22] MEDS ORDERED: METHADONE HCL 10 MG TABLET ONE (05:55)
[2019-10-22] MEDS: GABAPENTIN 300 MG CAPSULE (FP) PO SCH ×3 (06:13→21:29)
[2019-10-22] MEDS: METHADONE 40 MG, METHADONE 30 MG PO SCH (06:13)
[2019-10-22] MEDS: PRENATAL VITAMINS W/ FOLIC ACID TABLET (FP) PO SCH (09:06)
[2019-10-22] MEDS: NICOTINE POLACRILEX 2 MG GUM BUC PRN ×3 (09:07→21:11)
[2019-10-22] MEDS: MELATONIN 5 MG TABLETS PO PRN (21:10)
[2019-10-22] MEDS: THIAMINE HCL 100 MG TABLET (FP) PO SCH (21:10)
[2019-10-23] MEDS ORDERED: METHADONE HCL 40 MG DISPERSABLE TABLET ONE (05:30)
[2019-10-23] MEDS ORDERED: METHADONE HCL 10 MG TABLET ONE (05:30)
[2019-10-23] MEDS: GABAPENTIN 300 MG CAPSULE (FP) PO SCH ×3 (06:01→21:55)
[2019-10-23] MEDS: METHADONE 40 MG, METHADONE 30 MG PO SCH (06:01)
[2019-10-23] MEDS: NICOTINE POLACRILEX 2 MG GUM BUC PRN ×3 (07:21→18:16)
[2019-10-23] MEDS: PRENATAL VITAMINS W/ FOLIC ACID TABLET (FP) PO SCH (10:02)
[2019-10-23] MEDS: MELATONIN 5 MG TABLETS PO PRN (21:06)
[2019-10-23] MEDS: THIAMINE HCL 100 MG TABLET (FP) PO SCH (21:06)
[2019-10-24] MEDS ORDERED: METHADONE HCL 10 MG TABLET ONE (05:23)
[2019-10-24] MEDS ORDERED: METHADONE HCL 40 MG DISPERSABLE TABLET ONE (05:23)
[2019-10-24] MEDS: GABAPENTIN 300 MG CAPSULE (FP) PO SCH ×3 (05:53→21:31)
[2019-10-24] MEDS: NICOTINE POLACRILEX 2 MG GUM BUC PRN ×4 (05:54→21:31)
[2019-10-24] MEDS: METHADONE 40 MG, METHADONE 30 MG PO SCH (05:54)
[2019-10-24] MEDS: PRENATAL VITAMINS W/ FOLIC ACID TABLET (FP) PO SCH (09:41)
[2019-10-24] MEDS: MELATONIN 5 MG TABLETS PO PRN (21:31)
[2019-10-24] MEDS: THIAMINE HCL 100 MG TABLET (FP) PO SCH (21:31)
[2019-10-25] MEDS ORDERED: METHADONE HCL 10 MG TABLET ONE (03:09)
[2019-10-25] MEDS ORDERED: METHADONE HCL 40 MG DISPERSABLE TABLET ONE (03:09)
[2019-10-25] MEDS: METHADONE 40 MG, METHADONE 30 MG PO SCH (06:40)
[2019-10-25] MEDS: GABAPENTIN 300 MG CAPSULE (FP) PO SCH ×3 (06:40→21:39)
[2019-10-25] MEDS: NICOTINE POLACRILEX 2 MG GUM BUC PRN ×5 (06:41→21:00)
[2019-10-25] MEDS: PRENATAL VITAMINS W/ FOLIC ACID TABLET (FP) PO SCH (09:40)
[2019-10-25] MEDS: THIAMINE HCL 100 MG TABLET (FP) PO SCH (21:00)
[2019-10-26] MEDS ORDERED: METHADONE HCL 10 MG TABLET ONE (05:36)
[2019-10-26] MEDS ORDERED: METHADONE HCL 40 MG DISPERSABLE TABLET ONE (05:36)
[2019-10-26] MEDS: GABAPENTIN 300 MG CAPSULE (FP) PO SCH ×3 (05:44→21:45)
[2019-10-26] MEDS: METHADONE 40 MG, METHADONE 30 MG PO SCH (05:44)
[2019-10-26] MEDS: NICOTINE POLACRILEX 2 MG GUM BUC PRN ×2 (05:44→08:24)
[2019-10-26] MEDS: PRENATAL VITAMINS W/ FOLIC ACID TABLET (FP) PO SCH (09:39)
[2019-10-26] MEDS: THIAMINE HCL 100 MG TABLET (FP) PO SCH (21:45)
[2019-10-27] MEDS ORDERED: METHADONE HCL 40 MG DISPERSABLE TABLET ONE (05:30)
[2019-10-27] MEDS ORDERED: METHADONE HCL 10 MG TABLET ONE (05:30)
[2019-10-27] MEDS: NICOTINE POLACRILEX 2 MG GUM BUC PRN ×5 (06:25→21:32)
[2019-10-27] MEDS: METHADONE 40 MG, METHADONE 30 MG PO SCH (06:25)
[2019-10-27] MEDS: GABAPENTIN 300 MG CAPSULE (FP) PO SCH ×3 (06:25→21:31)
[2019-10-27] MEDS: PRENATAL VITAMINS W/ FOLIC ACID TABLET (FP) PO SCH (09:53)
[2019-10-27] MEDS: THIAMINE HCL 100 MG TABLET (FP) PO SCH (21:31)
[2019-10-28] MEDS ORDERED: METHADONE HCL 40 MG DISPERSABLE TABLET ONE (05:34)
[2019-10-28] MEDS ORDERED: METHADONE HCL 10 MG TABLET ONE (05:34)
[2019-10-28] MEDS ORDERED: METHADONE 40 MG, METHADONE 30 MG PO SCH (06:00)
[2019-10-28] MEDS ORDERED: METHADONE HCL 40 MG DISPERSABLE TABLET PO SCH (06:00)
[2019-10-28] MEDS: NICOTINE POLACRILEX 2 MG GUM BUC PRN ×5 (06:19→21:59)
[2019-10-28] MEDS: METHADONE 40 MG, METHADONE 30 MG PO SCH (06:19)
[2019-10-28] MEDS: GABAPENTIN 300 MG CAPSULE (FP) PO SCH ×3 (06:20→21:58)
[2019-10-28] MEDS: PRENATAL VITAMINS W/ FOLIC ACID TABLET (FP) PO SCH (09:39)
--- NOTE | 2019-10-28 13:03 | PN ---
S Progress Note Note: Psychiatric nurse practitioner note: Patient scheduled for discharge tomorrow. A 30 day prescription of Gabapentin 600mg TID was electronically sent to [facility], [address] [place] [id number].
[2019-10-28] MEDS: THIAMINE HCL 100 MG TABLET (FP) PO SCH (21:57)
[2019-10-29] MEDS ORDERED: METHADONE HCL 10 MG TABLET ONE (05:52)
[2019-10-29] MEDS ORDERED: METHADONE HCL 40 MG DISPERSABLE TABLET ONE (05:52)
[2019-10-29] MEDS ORDERED: METHADONE 40 MG, METHADONE 30 MG PO SCH ×2 (06:00)
[2019-10-29] MEDS ORDERED: METHADONE HCL 40 MG DISPERSABLE TABLET PO SCH (06:00)
[2019-10-29] MEDS: GABAPENTIN 300 MG CAPSULE (FP) PO SCH (06:12)
[2019-10-29] MEDS: NICOTINE POLACRILEX 2 MG GUM BUC PRN (06:13)
[2019-10-29 07:04] VITALS: BP 116/74; PULSE 65; TEMP 97.2
--- NOTE | 2019-10-29 09:35 | DS ---
[facility] Rehab Discharge Summary - [facility] Rehab Discharge Summary Admission Date: 10/13/19 Discharge Date: 10/29/19 - History Present History: Cocaine dependence, Opioid dependence, Sedative dependence Pertinent Past History: INITIAL ADMISSION NOTE: 44 yo with long h/o OUD, here for detoxing off benzo-xanax. Pt has been getting 2 months of xanax meds from PCP- last xanax on 10/06 #60, pt states he restarted using IV heroin when he started xanax. States he lost his job b/c of drug use. Pt signed release to talk to prescribing provider- Josh Gonzalez. Called and left message to call back at [facility]. Xanax- uses 2-4 mg/day Heroin- IV, 1 bundle/day, no OD, has narcan kit at home Methadone program [facility] wants to increase dose occ cocaine use sort of homeless-lost his job and may lose apartment, family in [place] DUR- oxycodone 10mg #60 on 09/20/19 and xanax #60 on 10/06/19 and adderall - Discharge Physical Exam Vital Signs: Vital Signs Temperature 97.2 F L 10/29/19 06:00 Pulse Rate 65 10/29/19 06:00 Respiratory Rate 18 10/29/19 06:00 Blood Pressure 116/74 10/29/19 06:00 O2 Sat by Pulse Oximetry (%) - Treatment Hospital Course: PATIENT DISCHARGED TODAY FROM REHAB. EVALUATED BY DR. TSANG 10/28/19 DUE TO EARLY D/C THIS AM. PATIENT ATTENDED ALL GROUP MEETINGS, 1:1 SESSIONS WITH COUNSELOR AND EVALUATED BY PSYCH DURING REHAB ADMISSION. PATIENT LEFT UNIT AT 6: 30AM PRIOR TO PROVIDER EVALUATION TODAY. AFTERCARE ARRANGED AT [facility], 10/29/19 AT 7AM. Ambulatory Orders Gabapentin [Neurontin -] 600 mg PO Q8H #90 capsule 02/22/18 Alprazolam [Xanax] 2 mg PO DAILY 10/10/19 Gabapentin 600 mg PO TID #90 tablet 10/28/19 Vital Signs Period Temp Pulse Resp BP Sys/Hernandez Pulse Ox Last 24 Hr 97.2 F 65 18-18 116/74 - Medication Discharge Medications: Ambulatory Orders Gabapentin [Neurontin -] 600 mg PO Q8H #90 capsule 02/22/18 Alprazolam [Xanax] 2 mg PO DAILY 10/10/19 Gabapentin 600 mg PO TID #90 tablet 10/28/19 - Medication-Assisted Treatment (MAT) Medication-Assisted Treatment (MAT): Yes MAT Follow-up Referral: [facility] - Discharge Instructions Diet, activity, other medical instructions: Diet: REG MIKEY Activity: MIKEY Other medical instructions: F/U WITH AFTERCARE AND PCP RECOMMENDED - Follow-up Referral Minutes to complete discharge: 30 - AMA Did Patient Leave Against Medical Advice: No
== END 2019-10-29 08:01 | disposition home or self-care (01) | DRG 772 ==
LOC: YASAS 12:39 → Y3W 12:41
PROVIDERS: ADMIT Neuromusculoskeletal Medicine & OMM; ATTEND Neuromusculoskeletal Medicine & OMM
PROC: HZ42ZZZ Group Counseling for Substance Abuse Treatment, Cognitive-Behavioral (ICD-10-PCS; principal; 2019-10-13)
DX: F11.20 Opioid dependence, uncomplicated (principal); F13.20 Sedative, hypnotic or anxiolytic dependence, uncomplicated; F14.20 Cocaine dependence, uncomplicated; Z59.0 Homelessness
CPT/HCPCS: 71046-TC-FY